=== PATIENT | male | born 1945 | race Caucasian/White ===

== ENCOUNTER 2018-02-14 07:30 | Inpatient (IN) ==
[~2018-02-14 07:30] MED LIST: ACETAMINOPHEN 500 MG TABLET PO ONE; CEFAZOLIN 1 G INJECTION IVP ONE; DEXAMETHASONE 4 MG/ML INJECTION IVP ONE; FAMOTIDINE PB 20 MG/50 ML BAG IV ONE; LIDOCAINE 1% (10mg/ml) 2mL INJ PF SDV ID ONE; METOCLOPRAMIDE 10mg/2ml INJECTION IVP ONE; ONDANSETRON 4 MG/2 ML INJECTION IVP ONE; TRANEXAMIC ACID 1,000 MG in NS 100 ML IV ONE
[2018-02-14] MEDS ORDERED: EPINEPHrine PF 0.25 MG, BUPIVACAINE 0.25% PF 30 ML, KETOROLAC INJ 60 MG in NS 30 ML OPSITE ONE (08:00)
[2018-02-14 09:32] VITALS: BMI 36.7
[2018-02-14] MEDS: NOZIN NASAL SWAB NAS SCH ×4 (10:10→21:38)
--- NOTE | 2018-02-14 11:17 | Anesthesia Preoperative Report ---
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 Proposed Procedure: Right Total Knee NPO Since Date: 02/14/18 NPO Since Time: 00:00 Allergies/Adverse Reactions: Allergies Allergy/AdvReac Type Severity Reaction Status Date / Time tramadol Allergy Intermediate Vomiting,di Verified 02/14/18 09:41 zzy Citric Acid Allergy Intermediate WATERY Uncoded 01/06/18 09:10 BLISTERS - Vital Signs Vital Signs: Temperature 97.9 F 02/14/18 09:29 Pulse Rate 70 02/14/18 09:46 Respiratory Rate 15 02/14/18 09:29 Blood Pressure 127/72 02/14/18 09:29 Pulse Oximetry 96 02/14/18 09:29 Height and Weight: Height 5 ft 9 in Weight 112.8 kg Body Mass Index 36.7 - Medications Inpatient Medications: Current Medications Epinephrine HCl 0.25 mg/Bupivacaine HCl 30 ml/Ketorolac Tromethamine 60 mg/ Sodium Chloride 62.25 mls @ 1 mls/hr OPSITE INTRAOP ONE; Protocol Stop: 02/16/18 22:14 Sodium Chloride (Normal Saline) 1,000 mls @ 50 mls/hr IV .Q20H LAITH Last Admin: 02/14/18 10:07 Dose: 50 mls/hr Isopropyl Alcohol (Nozin Nasal Swab) 1 each ZAK Q1M LAITH Stop: 02/14/18 12:48 Last Admin: 02/14/18 10:12 Dose: 1 each Sodium Chloride (Iv Flush) 10 - 80 ml IV PRN PRN PRN Reason: [place] Home Medications: Home Medications Medication Instructions Recorded Confirmed Type Levothyroxine Sodium 112 mcg PO 0400 08/15/17 02/14/18 History Lisinopril/Hydrochlorothiazide 1 each PO HS 08/15/17 02/10/18 History [Zestoretic 10-12.5 mg Tablet] Metoprolol Succinate 50 mg PO HS 08/15/17 02/10/18 History Acetaminophen [Tylenol Arthritis] 2 tab PO PRN 02/14/18 02/14/18 History Atorvastatin Calcium 80 mg PO HS 02/14/18 02/14/18 History Is Patient on Beta Nahed?: Yes Beta Nahed Last Dose Date/Time: unknown - Medical History Respiratory: Reports: Other (former smoker quit in 1973) DENIES: Asthma, Bronchitis, Chronic Obstructive Pulmonary Disease (COPD), Dyspnea, Orthopnea, Pulmonary Embolism, Pneumonia, Upper Respiratory Infection, Pulmonary Edema, Sleep Apnea, Tuberculosis Cardiovascular: Reports: Coronary Artery Disease (RCA), Hypertension, Myocardial Infarction (X2- undiagnosed and not treated), Other (hyperlipidemia) DENIES: Angina Gastrointestional: Reports: Gastroesophageal Reflux Disease (WITHOUT ESOPHAGITIS ; HX), Morbid Obesity Neuro/Musculoskeletal: Reports: Back Problems (severe low back pain/ chronic neck pain) Renal/Endocrine: Reports: Thyroid Disease Other History: Reports: Blood Transfusions (x3) - Surgical History HEENT Surgeries: Reports: Ear Surgery (HOLE IN RIGHT EAR; TUBES) Cardiac Surgeries/Treatments: Reports: Cardiac Catheterization (OCTOBER 2017- no intervention), Other (was told he had heart attack august 2017) GI Surgery/Treatments: Reports: Colon Resection (for large benign mass-2014), Hernia Repair (BILATERAL INGUINAL), Colonoscopy, Other (HEMORRHOIDECTOMY) Musculoskeletal Surgery/Tx: Reports: Carpal Tunnel Release (Bilateral), Shoulder Arthroscopy (RCR), Other (back surgery WITH FUSION) Anesthesia Reactions: None Hx Family Anesthesia Reaction: No History of Motion Sickness: No - Social History Smoking Status: Former smoker (quit in 1973) Hx Chewing Tobacco Use: No Second Hand Exposure: No Substance Use Type: does not use Alcohol Intake Frequency: does not drink - Pertinent Findings Laboratory: CBC and BMP 02/14/18 09:40 02/14/18 09:40 BMP 02/14/18 09:40 Sodium 144 Potassium 4.1 Chloride 107 Carbon Dioxide 24 BUN 17.0 Creatinine 1.4 Glucose 106 Calcium 9.9 Liver Function 02/14/18 Range/Units 09:40 Total Bilirubin 1.20 (0.20-1.30) MG/DL AST 33 (17-59) U/L ALT 25 (1-50) U/L Alkaline Phosphatase 65 (38-126) U/L Albumin 5.0 (3.5-5.0) g/dL EKG: Sinus Rhythm - Physical Exam Respiratory Exam: Present: lungs clear, bilateral breath sounds equal Cardiovascular Exam: Present: regular rate and rhythm, no murmur - Airway Assessment Mallampati Score: II TMD: 2 Fingerbreadths Neck Extension: poor Teeth: patial upper dentures (removed) Overall Assessment: may be difficult mask vent - ASA ASA Score: 3 - Plan Anesthesia: General TIVA, General Inhalation Gases Peripheral Nerve Block: Adductor Canal-Right (postop) - Discussion Discussion: Discussed risks/options/alternatives of anesthesia and questions answered. Patient consents. Nursing pain assessment noted. Present for Discussion: family member Attestation Statement: Prior to the delivery of any anesthetic medication, I examined the patient, developed the plan, obtained the patient's consent and discussed the risk and benefits of the procedure with the patient/guardian. - Additional Information Seen by Anesthesia: Yes
[2018-02-14] MEDS ORDERED: VANCOMYCIN 1,000 MG INJECTION ONE (11:25)
[2018-02-14] MEDS ORDERED: VANCOMYCIN 1,000 MG INJECTION IAR ONE (11:29)
[2018-02-14] MEDS ORDERED: ANESTHESIA MIXTURE 50 ML IV ONE (11:30)
[2018-02-14] MEDS ORDERED: FentaNYL 100 MCG/2 ML INJECTION ONE (11:56)
[2018-02-14] MEDS ORDERED: SALINE FLUSH 10ml SYRINGE IV PRN (12:39)
[2018-02-14] MEDS ORDERED: LR 1,000 ML IV SCH (13:37)
--- NOTE | 2018-02-14 13:45 | Operative Note ---
- Procedure Preoperative Diagnosis: Right knee primary degenerative joint disease Postoperative Diagnosis: Same as preoperative diagnosis. Surgeon: Kathy Sanchez MD Compensation And Benefits Manager: Kristine Wren Complications: None. Anesthesia: Spinal. Estimated Blood Loss: See Anesthesia Record. Fluids: Please see Anesthesia Record. Description of Procedure: Mr. Sam and his right knee were identified and marked in the preoperative holding area. He was brought back to the operating suite. Spinal anesthetic was administered and he was placed supine on the operating table. The right lower extremity was prepped and draped in my normal sterile fashion. Timeout was performed. The [employer] robotic arm was used during the surgery. He had a fixed varus deformity with no flexion contracture. A standard anterior midline incision followed by medial parapatellar arthrotomy was performed. Anterior fat pad and meniscus were removed. The patella was everted and a patellar osteotomy was performed leaving 13 mm of bone. Tibial and femoral arrays and checkpoints were placed both within the original incision. The bone was then registered with the [employer] robot. Osteophytes were removed and gaps were captured both 90 and 0 with correction. The knee was balanced with placing the femoral component into degrees of varus the femoral component was removed inferior 1 mm. This gave a 18 mm gaps. The [employer] robotic arm was then used to assist with the bone cuts. Posterior osteophytes and remaining meniscus were removed. Trial components were placed. We used a 5 femur and a 5 tibia with a 9 mm spacer and a 32 patella. He tracked well and was well balanced throughout range of motion. The arrays were then removed. The tibia was then stamped the proper rotation. I then cemented the components into place and allowed them to cure in extension. During this time the tourniquet was let down and hemostasis was obtained with electrocautery. After the cement had cured the knee again was taken through range of motion. He had increased laxity in both flexion and extension. I removed the 9 mm spacer trial with a 11 mm spacer which gave him excellent stability and range of motion. A final 11 mm spacer was then placed. The patella tracked well. After a final thorough irrigation with normal saline as well as Betadine 1 g vancomycin powder was placed into the knee joint. We then closed the capsule with #1 Vicryl. I then left my esol teacher assistant closed the subcutaneous tissue with both 2-0 Vicryl in an interrupted fashion. The subcutaneous tissue closed with a 4-0 Monocryl followed by Dermabond. Mediplex dressing will be placed and the patient will be taken back to the recovery room under the care of anesthesia.
[2018-02-14] MEDS ORDERED: NS 1,000 ML IV SCH (14:15)
[2018-02-14] MEDS ORDERED: ROPIVACAINE 0.5% (5mg/ml) 30ml INJ ONE (14:38)
[2018-02-14] MEDS ORDERED: ONDANSETRON 4 MG/2 ML INJECTION IVP PRN ×2 (14:55→15:52)
[2018-02-14] MEDS ORDERED: DiphenhydrAMINE 50 MG/ML INJECTION IVP PRN ×2 (14:55→15:52)
[2018-02-14] MEDS: HYDROMORPHONE 2 MG/ML INJECTION IVP PRN ×2 (15:00→15:10)
--- NOTE | 2018-02-14 15:34 | XRay Report ---
Indication: postoperative image PROCEDURE: XR knee RT 2V: Encounter: Initial Comparison: August 15, 2017 Findings: Postoperative changes of right total knee replacement are seen. There is expected postoperative subcutaneous gas. No evidence of hardware failure or acute fracture. No retained radiopaque surgical instruments or sponges. Overlying material causing artifact. Impression: New right total knee prosthesis without evidence of immediate complication. .
--- NOTE | 2018-02-14 15:47 | Anesthesia Postoperative Note ---
- Date and Time Date: 02/14/18 Time: 15:47 - Status Patient Participated in Evaluation: Patient Participated in Person Vital Signs: Temperature 97.9 F 02/14/18 09:29 Pulse Rate 70 02/14/18 09:46 Respiratory Rate 18 02/14/18 15:19 Blood Pressure 127/72 02/14/18 09:29 Pulse Oximetry 96 02/14/18 09:29 Respiratory Function: Airway Patent Cardiovascular Function: Regular Pulse EKG: Sinus Rhythm Mental Status: Alert and Oriented Pain Intensity: 3 Hydration: IV Infusing Complications During Recover: None Apparent - Follow-Up Instructions Instructions: Per Surgeon
[2018-02-14] MEDS ORDERED: DEXAMETHASONE 20 MG/5 ML INJECTION IVP ONE (15:52)
[2018-02-14] MEDS ORDERED: DiphenhydrAMINE 25 MG CAPSULE PO PRN (15:52)
[2018-02-14] MEDS ORDERED: LORazepam 1 MG TABLET PO PRN (15:52)
[2018-02-14] MEDS ORDERED: NOZIN NASAL SWAB NAS ONE (15:52)
[2018-02-14] MEDS ORDERED: Oxycodone *IR* 5 MG TABLET PO PRN (15:52)
[2018-02-14] MEDS: NS 1,000 ML IV SCH (16:22)
--- NOTE | 2018-02-14 16:40 | Anesthesia Procedure Note ---
Peripheral Nerve Blockade - Procedure Physician: Wade Sanchez MD Date: 02/14/18 Surgical Procedure: Right Total Knee Discussion: Discussed risks/options/alternatives of anesthesia and questions answered. Patient consents. Nursing pain assessment noted. Block Start: 14:39 Block Stop: 14:42 Block Employed: Adductor Canal-Right (postop) Indication: Post-Operative Pain Approach: Right Side Confirmed Position: Semi-Russell Patient: Consent, Risks/Benefits Discussed, Informed, Post Block Act. Discussed IV Sedation: Yes (Post GA) Initial Vital Signs: Temperature 97.9 F 02/14/18 09:29 Temperature Source Oral 02/14/18 09:29 Pulse Rate 71 02/14/18 09:29 Respiratory Rate 15 02/14/18 09:29 Blood Pressure 127/72 02/14/18 09:29 Blood Pressure Mean 90 02/14/18 09:29 Blood Pressure Position Sitting 02/14/18 09:29 Pulse Oximetry 96 02/14/18 09:29 Oxygen Delivery Method 02/14/18 09:29 Post Vital Signs: Temperature 98.2 F 02/14/18 15:52 Pulse Rate 81 02/14/18 15:50 Respiratory Rate 18 02/14/18 15:19 Blood Pressure 113/55 02/14/18 15:50 Pulse Oximetry 99 02/14/18 15:50 Initial Pain Pain Score: 0 Post Block Pain Score: 0 Ultrasound Used?: Yes - Injectate Ropivacaine (%): 0.5 Ropivacaine (mL): 15 Was Epi 1:200,000 Used?: No Injection: Injection made incrementally with constant monitoring and aspiration every ml
[2018-02-14] MEDS: ACETAMINOPHEN 325 MG TABLET PO SCH ×2 (18:32→21:37)
[2018-02-14] MEDS ORDERED: LISINOPRIL/HCTZ 10/12.5 MG TABLET PO SCH (21:00)
[2018-02-14] MEDS ORDERED: SENNOSIDES 8.6 MG TABLET PO SCH (21:00)
[2018-02-14] MEDS ORDERED: ATORVASTATIN 40 MG TABLET PO SCH (21:00)
[2018-02-14] MEDS: CEFAZOLIN 2 G in NS 100 ML IV SCH (21:38)
[2018-02-14] MEDS: DOCUSATE SODIUM 100 MG CAPSULE PO SCH (21:38)
[2018-02-14] MEDS: ASPIRIN *EC* 81 MG TABLET PO SCH (21:38)
[2018-02-15] MEDS ORDERED: LEVOTHYROXINE 112 MCG TABLET PO SCH (04:00)
[2018-02-15] MEDS: CEFAZOLIN 2 G in NS 100 ML IV SCH (04:34)
[2018-02-15] MEDS: NOZIN NASAL SWAB NAS SCH ×2 (07:47→14:31)
--- NOTE | 2018-02-15 08:12 | Orthopedic Progress Note ---
Date: Date: 02/15/18 Time: 08 Subjective/Severity of Illness: Sulaiman is sitting up on the edge of the bed this morning. He reported significant back pain in post-op, improved now. Has been up ambulating. Reports right knee pain has been well controlled with Tylenol. He has not tried Roxicodone due to concerns of addiction (he had a brother who struggle with addiction). He prefers to use meditation. He denies any CP, SOA, nausea. He required O2 overnight, SPO2 desat to 86%. He is back on RA now. Hgb. 12.9, glucose 137- received Decadron pre and post op. Orthopedic Exam Vital signs: Temperature 98.0 F 02/15/18 03:47 Pulse Rate 85 02/15/18 03:47 Respiratory Rate 19 02/15/18 03:47 Blood Pressure 120/64 02/15/18 03:47 Pulse Oximetry 86 L 02/15/18 05:23 - Constitutional General Appearance: Present: alert, orientated x3, cooperative, well developed, well nourished - Respiratory Exam Present: CTA bilaterally, non-labored - Cardiovascular Exam Present: Regular Rate/Rhythm, pedal pulses intact - Abdominal Exam Present: soft - Extremities Exam Present: pulses intact. Absent: calf tenderness - Dressing Dressing: dry, intact, no drainage - Integumentary Exam Present: pink, warm, dry - Neurological Exam Present: intact to light touch, no deficits - Psychiatric Exam Present: alert, oriented - Labs Result Diagrams: 02/15/18 04:05 02/15/18 04:05 Abnormal lab results 02/14/18 02/14/18 02/15/18 Range/Units 09:40 09:40 04:05 Hgb 12.9 L D (13.5-17.5) GM/DL Hct 38.4 L D (41-53) % [place] % (Auto) 9.3 H (0-9.0) % BUN (9-20) MG/DL Glucose (75-110) MG/DL Total Protein 8.5 H (6.3-8.2) g/dL 02/15/18 Range/Units 04:05 Hgb (13.5-17.5) GM/DL Hct (41-53) % [place] % (Auto) (0-9.0) % BUN 29.0 H D (9-20) MG/DL Glucose 137 H (75-110) MG/DL Total Protein (6.3-8.2) g/dL H & H 02/14/18 02/15/18 Range/Units 09:40 04:05 Hgb 16.1 12.9 L D (13.5-17.5) GM/DL Hct 47.5 38.4 L D (41-53) % Orthopedic Assessment and Plan (1) Status post right knee replacement Status: Acute Assessment and Plan: Current anti-coagulation protocol with ASA 81mg BID x 6 weeks for VTE prophylaxis. SCD's for added protection. Pain control- encouraged patient to try Roxicodone 5mg to know if he tolerates it for pain management. Therefore, when he goes home if he has increased pain he has prn meds for break through. He agrees with this. PT/OT services to improve independent function. Discharge Planning per Case Management. - Anticoagulation Therapy Anticoagulation: ASA 81 mg PO BID x6 weeks - Additional Diagnoses Hypertension: stable, resume medications CAD: no active chest pain Anemia: no intervention required, patient was asymptomatic, labs monitored CKD: labs monitored and stable Hospital Course Summary Disclaimer: The visit summary below is not to be considered part of the above Progress Note.
--- NOTE | 2018-02-15 08:21 | Discharge Summary ---
Letter to PCP Cover Letter: Sulaiman Sam underwent an elective total joint arthroplasty by Dr. Sanchez. Aspirin 81mg therapy was initiated for DVT prophylaxis. Aspirin should be given BID for six weeks postoperatively. Details for their hospitalization can be found in the discharge summary attached. The patient is scheduled to see you one week after surgery for a post-operative check. I hope you find the discharge summary informative and helpful as you resume care of your patient after their surgery. If our office can be of any assistance, please feel free to contact us any time. Orthopedic Discharge Info Date of admission: 02/14/18 09:16 Anticipated date of discharge: 02/15/18 Primary care physician: Jose Alberto Ruiz MD Attending Physician: Wade aSnchez MD Consults: 02/14/18 IRU Screening [Inpatient Rehab Screening] [CONS] Routine Screen requested by:: Family/Patient Comment Text:: R TKA; POSSIBLE DC 02/15/18 02/14/18 06:28 Consult to Anesthesiology [CONS] Routine Reason For Exam: Preoperative Assessment 02/14/18 14:20 Total Joint Outpatient Therapy [CONS] Routine Comment: Remove dressing in 2 weeks 02/14/18 15:52 Case Management Consult [CONS] Routine Reason For Exam: Discharge Planning DME-Walker [CONS] Routine Height: 5 ft 9 in Weight: 112.8 kg 02/14/18 16:45 Doctor [Physician Consult] [CONS] Routine Consulting Provider: Franck Landry Reason For Exam: SNF Ordering Provider has Notified Manager Order: Yes - Discharge Diagnosis (1) Status post right knee replacement Status: Acute - Procedures Procedures: Procedures Open and other right hemicolectomy (09/05/14) Other procedures on hemorrhoids (09/05/14) - Laboratory Result Diagrams: 02/15/18 04:05 02/15/18 04:05 Laboratory: Abnormal lab results 02/14/18 02/14/18 02/15/18 Range/Units 09:40 09:40 04:05 Hgb 12.9 L D (13.5-17.5) GM/DL Hct 38.4 L D (41-53) % [place] % (Auto) 9.3 H (0-9.0) % BUN (9-20) MG/DL Glucose (75-110) MG/DL Total Protein 8.5 H (6.3-8.2) g/dL 02/15/18 Range/Units 04:05 Hgb (13.5-17.5) GM/DL Hct (41-53) % [place] % (Auto) (0-9.0) % BUN 29.0 H D (9-20) MG/DL Glucose 137 H (75-110) MG/DL Total Protein (6.3-8.2) g/dL H & H 02/14/18 02/15/18 Range/Units 09:40 04:05 Hgb 16.1 12.9 L D (13.5-17.5) GM/DL Hct 47.5 38.4 L D (41-53) % Orthopedic Discharge HPI - HPI Comments This patient was admitted for elective surgical tx of end stage degenerative joint disease that failed to respond to conservative treatment. Further details of this is found in the admission H&P. Orthopedic Hospital Course Hospital course: 02/15/18 08:18 After appropriate preoperative clearance and signing of operative consent, the patient was given IV antibiotics, according to orthopedic protocol. The patient was taken to the operating room and underwent elective joint arthroplasty. Following surgery, antibiotics were discontinued less than 24 hours according to joint protocol. Appropriate anticoagulants were initiated and SCDs added for DVT prevention. The dressing was clean, dry, and intact. Pain control was obtained via multimodal approach. Bowel motivation addressed with scheduled and PRN medications. Early mobilization was initiated through PT services. Discharge arrangements made by a collaborative effort between the patient and Case Management. HTN- home medications restarted, BP well controlled CAD- no active chest pain during hospitalization, SR on telemetry CKD- labs monitored. hand reamer 1.5, baseline 1.46. Anemia- no acute intervention required post operatively. Hgb 12.9 Schedule medical follow up with PCP 1 week after discharge. Follow-up is scheduled in 2-3 weeks. Discharge instructions given by orthopedic providers and nursing staff at discharge. Discharge condition was good. 02/15/18 08:22 Care extended to > 2 midnight stays?: No Discharge Plan - Med Rec/Dispo Referrals/Follow Up: Jose Alberto Ruiz MD [Primary Care Provider] - 02/21/18 1:20 pm Kristine Wren FLUID DESIGNER [Advanced Practice Nurse] - Luis Felipe Johnson PA [Physician Slab Puller] - 03/08/18 1:00 pm Irwin Instructions: [facility] Postop Instructions Prescriptions: New Aspirin *EC* [Ecotrin] 81 mg PO BID tab Docusate Sodium [Colace] 100 mg PO BID cap Milk of Magnesia [Mom] 30 ml PO DAILY udc Oxycodone *IR* [Roxicodone *Ir*] 5 - 15 mg PO Q3H PRN #30 tablet PRN Reason: Breakthrough Pain Acetaminophen [Tylenol] 650 mg PO QID tab Continue Levothyroxine Sodium 112 mcg PO 0400 Lisinopril/Hydrochlorothiazide [Zestoretic 10-12.5 mg Tablet] 1 each PO HS Atorvastatin Calcium 80 mg PO HS Acetaminophen [Tylenol Arthritis] 2 tab PO PRN Metoprolol Succinate 50 mg PO HS - Disposition 01 Discharged Home, Self-Care - Dismissal Complete Discharge Instructions are:: Complete
[2018-02-15] MEDS ORDERED: POLYETHYL GLYCOL 3350 17gm PACKET PO SCH (09:00)
[2018-02-15] MEDS: NS 1,000 ML IV SCH (11:08)
[2018-02-15] MEDS: ASPIRIN *EC* 81 MG TABLET PO SCH (12:00)
[2018-02-15] MEDS: ACETAMINOPHEN 325 MG TABLET PO SCH ×2 (12:00→14:02)
[2018-02-15] MEDS: DOCUSATE SODIUM 100 MG CAPSULE PO SCH (12:01)
[2018-02-15 12:02] VITALS: BP 116/59; PULSE 87; RESP 18; TEMP 96.5; O2SAT 93
[2018-02-15] MEDS ORDERED: SENNOSIDES 8.6 MG TABLET PO PRN (14:19)
[2018-02-16] MEDS ORDERED: BISACODYL 10 MG SUPPOSITORY RECTALLY SCH (20:00)
== END 2018-02-15 16:45 | disposition home health service (06) | DRG 470 ==
LOC: NMC.PERIOP 09:16 → EDSTATUS 11:10 → SRG 15:52
PROVIDERS: ADMIT Orthopaedic Surgery; ATTEND Orthopaedic Surgery